=== PATIENT | female | born 1980 | race Caucasian/White ===

== ENCOUNTER → 2021-12-17 | Outpatient (CLI) | payer OTHER | LOC: MAMO 12-16 08:00 | DX: Z12.31 Encounter for screening mammogram for malignant neoplasm of breast (principal); R00.0 Tachycardia, unspecified | CPT/HCPCS: 77063; 77067 ==

== ENCOUNTER → 2022-01-15 | Outpatient (CLI) | payer OTHER | LOC: EXRD 08:38 | DX: M79.672 Pain in left foot (principal) | CPT/HCPCS: 73630 ==

== ENCOUNTER → 2022-01-21 | Outpatient (CLI) | payer OTHER | LOC: EMI 01-14 13:00 | DX: G44.89 Other headache syndrome (principal); G43.009 Migraine without aura, not intractable, without status migrainosus | CPT/HCPCS: 70551 ==